=== PATIENT | female | born 1965 | race Two or more races ===

== ENCOUNTER 2016-04-25 13:09 | Emergency (ER) | payer SELFPAY ==
--- NOTE | 2016-04-25 13:23 | UCPHY ---
H & P Patient Type: New HPI/ROS: HPI CHIEF COMPLAINT: Right upper quadrant abdominal pain HISTORY OF PRESENT ILLNESS: this patient very pleasant 50-year-old female, significant past medical history for migraine headaches, mold intolerance, presents to the urgent care with right upper quadrant abdominal pain intermittently over the past 12 months. Patient tells me that over the past 12 months she has had distinct episodes of right upper quadrant abdominal pain 1-2 hours after she eats. She tells me she has had this 4-5 times over the last year last note of April 03 she had an acute onset of right upper quadrant pain that radiates to her epigastric lasting hours usually after she eats dinner. With associated nausea. She tells me 2 days ago she developed this right upper quadrant pain that has since resolved, she has had mild nausea with it however no vomiting no fever and no longer has pain. Denies diarrhea. Denies black tarry stools, denies GERD symptoms. She tells me she was seen 1 other time over a year ago in [place] where she had blood work and ultrasound said it may have been her gallbladder. She does move from [place] out to [facility]. Past Medical History: mold intolerance, migraine headaches Past Surgical History: no significant surgical history Social History: denies daily use drugs alcohol tobacco products Family History: noncontributory ROS REVIEW OF SYSTEMS: A comprehensive 10 point review of systems is otherwise negative aside from elements mentioned in the history of present illness. Exam Constitutional triage nursing summary reviewed, vital signs reviewed, awake/ alert. Eyes normal conjunctivae and sclera, EOMI, PERRLA. HENT normal inspection, atraumatic, moist mucus membranes, no epistaxis, neck supple/ no meningismus, no raccoon eyes. Respiratory clear to auscultation bilaterally, normal breath sounds, no respiratory distress, no wheezing. Cardiovascular rate normal, regular rhythm, no murmur, no edema, distal pulses normal. Gastrointestinal soft, non-tender, no rebound, no guarding, normal bowel sounds, no distension, no pulsatile mass. Genitourinary no CVA tenderness. Musculoskeletal no midline vertebral tenderness, full range of motion, no calf swelling, no tenderness of extremities, no meningismus, good pulses, neurovascularly intact. Skin pink, warm, & dry, no rash, skin atraumatic. Neurologic awake, alert and oriented x 3, AAOx3, moves all 4 extremities equally, motor intact, sensory intact, CN II-XII intact, normal cerebellar, normal vision, normal speech. Psychiatric normal mood/affect. Heme/Lymph/Immune no lymphadenopathy. Differential diagnosis includes but is not limited to and in no particular order : Bowel obstruction, appendicitis, gallbladder disease, diverticulitis, colitis , enteritis, perforated viscus, gastritis, GERD, esophagitis, urinary tract infection, pyelonephritis, kidney stones Medical Decision Making:This patient had an IV established will obtain blood work, patient have an ultrasound of her right upper quadrant rule out cholecystitis, gallbladder stones, biliary colic. Re-evaluation: Ultrasound of the Right upper quadrant The results of the study are gallbladder sludge however no ductal dilatation, no evidence acute cholecystitis no significant gallstones I discussed the results of this study with the radiologist Dr. Robbins [id number]: I did go over this patient's blood work with her as well as ultrasound results she understands follow-up with Gastroenterology outpatient. Return emergency room if she develops worsening abdominal pain fever vomiting. At this time her abdomen is soft nontender no guarding or peritoneal signs she is comfortable with discharge planning. She has no pain at this time. Source: Patient - Family History Significant Family History: No pertinent family hx Medical Decision Making - Data Points Laboratory Results: Laboratory Results 04/25/16 13:51 04/25/16 13:51 04/25/16 13:51 WBC 5.32 10^3/uL (3.80-9.50) RBC 4.69 10^6/uL (4.18-5.33) Hgb 13.5 g/dL (12.6-16.3) Hct 41.6 % (38.0-47.0) MCV 88.7 fL (81.5-99.8) MCH 28.8 pg (27.9-34.1) MCHC 32.5 g/dL (32.4-36.7) RDW 12.8 % (11.5-15.2) Plt Count 204 10^3/uL (150-400) MPV 10.6 fL (8.7-11.7) Neut % (Auto) 51.6 % (39.3-74.2) Lymph % (Auto) 39.8 % (15.0-45.0) [place] % (Auto) 6.0 % (4.5-13.0) Eos % (Auto) 1.5 % (0.6-7.6) Baso % (Auto) 0.9 % (0.3-1.7) Nucleat RBC Rel Count 0.0 % (0.0-0.2) Absolute Neuts (auto) 2.74 10^3/uL (1.70-6.50) Absolute Lymphs (auto) 2.12 10^3/uL (1.00-3.00) Absolute Monos (auto) 0.32 10^3/uL (0.30-0.80) Absolute Eos (auto) 0.08 10^3/uL (0.03-0.40) Absolute Basos (auto) 0.05 10^3/uL (0.02-0.10) Absolute Nucleated RBC 0.00 10^3/uL (0-0.01) Immature Gran % 0.2 % (0.0-1.1) Immature Gran # 0.01 10^3/uL (0.00-0.10) Sodium 141 mEq/L (134-144) Potassium 3.8 mEq/L (3.5-5.2) Chloride 102 mEq/L (97-110) Carbon Dioxide 28 mEq/l (22-31) Anion Gap 11 mEq/L (8-16) BUN 10 mg/dL (7-23) Creatinine 0.8 mg/dL (0.6-1.0) Estimated GFR > 60 Glucose 76 mg/dL (70-100) Calcium 9.5 mg/dL (8.5-10.4) Total Bilirubin 0.5 mg/dL (0.1-1.4) Conjugated Bilirubin 0.2 mg/dL (0.0-0.5) Unconjugated Bilirubin 0.3 mg/dL (0.0-1.1) AST 23 IU/L (14-46) ALT 27 IU/L (9-52) Alkaline Phosphatase 59 IU/L (38-126) Total Protein 7.3 g/dL (6.3-8.2) Albumin 4.3 g/dL (3.5-5.0) Lipase 91.0 IU/L (23-300) Beta HCG, Qual NEGATIVE Departure - Departure Disposition: Home, Routine, Self-Care Clinical Impression: Abdominal pain Qualifiers: Qualifier Code: (R10.11) Right upper quadrant pain Condition: Good Instructions: Acute Abdominal Pain (ED), Abdominal Pain (ED) Referrals: OUT OF STATE,. [Primary Care Provider] - As per Instructions Kelby Kan MD [Medical Doctor] - As per Instructions - PQRS PQRS Measurement: n/a
[2016-04-25] MEDS ORDERED: NS 1,000 ML IV ONE (13:36)
[2016-04-25 13:55] LABS: % IMMATURE GRANULYOCYTES 0.2 % (0.0-1.1); ABSOLUTE IMMATURE GRANULOCYTES 0.01 10^3/uL (0.00-0.10); ADD DIFF? NO; ADD MORPH? NO; ADD SCAN? NO; ATYPICAL LYMPHOCYTE FLAG 10 (0-99); FRAGMENT RBC FLAG 0 (0-99); HEMATOCRIT 41.6 % (38.0-47.0); HEMOGLOBIN 13.5 g/dL (12.6-16.3); LEFT SHIFT FLG 0 (0-99); LIPEMIA HEMOLYSIS FLAG 80 (0-99); MEAN CELL HEMOGLOBIN 28.8 pg (27.9-34.1); MEAN CELL HEMOGLOBIN CONCENTR. 32.5 g/dL (32.4-36.7); MEAN CELL VOLUME 88.7 fL (81.5-99.8); MEAN PLATELET VOLUME 10.6 fL (8.7-11.7); PLATELET CLUMPS FLAG 10 (0-99); PLATELET COUNT 204 10^3/uL (150-400); RED BLOOD CELL COUNT 4.69 10^6/uL (4.18-5.33); RED CELL DISTRIBUTION WIDTH 12.8 % (11.5-15.2)
[2016-04-25 14:09] LABS: ALANINE AMINOTRANSFERASE 27 IU/L (9-52); ALBUMIN 4.3 g/dL (3.5-5.0); ALKALINE PHOSPHATASE 59 IU/L (38-126); ANION GAP 11 mEq/L (8-16); ASPARTATE AMINOTRANSFERASE 23 IU/L (14-46); BILIRUBIN,TOTAL 0.5 mg/dL (0.1-1.4); BILIRUBIN-CONJUGATED 0.2 mg/dL (0.0-0.5); BILIRUBIN-UNCONJUGATED 0.3 mg/dL (0.0-1.1); CALCIUM 9.5 mg/dL (8.5-10.4); CARBON DIOXIDE 28 mEq/l (22-31); CHLORIDE 102 mEq/L (97-110); CREATININE 0.8 mg/dL (0.6-1.0); GLOMERULAR FILTRATION RATE > 60; GLUCOSE 76 mg/dL (70-100); POTASSIUM 3.8 mEq/L (3.5-5.2); SODIUM 141 mEq/L (134-144); TOTAL PROTEIN 7.3 g/dL (6.3-8.2)
[2016-04-25 14:52] VITALS: BP 119/74; PULSE 82; RESP 16; TEMP 97.9; O2SAT 100
--- NOTE | 2016-04-25 15:03 | US ---
Sonography Limited to the Right Upper Quadrant of the Abdomen Clinical History: 50-year-old female with right upper quadrant abdominal pain for 2 days noted interm ittently. Rule out cholelithiasis. The patient has had nausea, but no vomiting. Technique: A curvilinear 5 MHz transducer was used to sonographically evaluate the right upper quadra nt of the abdomen. Color Doppler is used. Comparison Study: The patient reportedly had an outside study in 2011 which did not reveal any stones . Findings: The pancreatic contour is normal. The abdominal aorta is normal in size and tapers normally . The visualized IVC is normal in caliber. The main portal vein is patent. The hepatic vein trifurcat ion appears normal. The gallbladder is moderately distended, despite the patient's not being N.P.O. T here are no stones, wall thickening, pericholecystic fluid, or polyp. When the patient was placed in a left lateral decubitus position, a small amount of layering sludge was noted (please reference imag e 44). The liver is normal in size and homogeneous in echotexture, measuring 14.0 cm along the right midaxillary line. There is no focal hepatic mass. There is no intra- or extrahepatic bile duct dilata tion. The common bile duct measures between 3.6 and 4.8 mm, which are sizes within normal limits give n the age. There is no ascites or right pleural effusion. The right kidney was seen in a limited fash ion secondary to adjacent bowel gas, and it measures 9.3 x 4.7 x 4.0 cm. There is no hydronephrosis o r focal renal mass. The right renal cortex measures 1.0 cm. Impression: Minimal gallbladder sludge with no cholelithiasis, cholecystitis, or bile duct dilatation . Results were discussed with Dr. Alec Pineda. A test result has been communicated to a licensed care provider and documented in [employer], 2:41:49 PM , 04/25/2016, [employer] Message ID [id number].
== END 2016-04-25 15:15 | disposition home or self-care (01) ==
LOC: CED 13:09
DX: R10.11 Right upper quadrant pain (principal); G43.909 Migraine, unspecified, not intractable, without status migrainosus
CPT/HCPCS: 76705-PO; 80048-PO; 80076-PO; 83690-PO; 84703-PO; 85025-PO; 99204-PO; G0463-PO